=== PATIENT | female | born 1995 | race Caucasian/White ===

== ENCOUNTER 2017-04-25 10:24 | Emergency (ER) | payer OTHER ==
[~2017-04-25] VITALS: Ht 175.3 cm; Wt 83.1 kg
[2017-04-25 10:38] VITALS: TEMP 36.9; Ht 175.3 cm; Wt 83.1 kg
[2017-04-25] MEDS ORDERED: IBUP-1459 PO (11:06)
[2017-04-25] MEDS ORDERED: KETOROLAC TROMETHAMINE 30 MG/ML VIAL IV STA (11:15)
--- NOTE | 2017-04-25 11:15 | EMERGENCY ROOM VISIT NOTE ---
History Report prepared by Fransisca: Edwin Montalvo Under the Supervision of: Dr. Stella Perez M.D. First contact with patient: 10:57 Chief Complaint: PELVIC PAIN Stated Complaint: SHARPT CONSTANT GROIN PAIN History of Present Illness The patient is a 21 year old female who presents to the Emergency Room with complaints of worsening bilateral pelvic pain that started a week ago. She says that she has not had a period since December, but she has been on NUVA rings. The patient states that she stopped the control 2 days ago to get her period. She notes that she a week ago, she started having the lower abdominal pain, but yesterday morning, the pain worsened and is now a sharp constant pain. She adds that the pain wraps around to both sides of her back. The patient states the the pain is worst on the right side of her pelvis. She says that pain has been making her a bit nauseous. The patient says that she last took a test a month ago, which was negative. She denies any fevers, vomiting, vaginal bleeding, or pain with urination. She notes no history or kidney stone history. Source of History: patient Onset: A week ago Position: pelvis (bilateral) Quality: sharp, other (pain) Timing: constant, worsening Associated Symptoms: + nausea, + back pain, No fevers, No vomiting, No urinary symptoms Note: Denies vaginal bleeding. Review of Systems See HPI for pertinent positives & negatives. A total of 10 systems reviewed and were otherwise negative. Past Medical & Surgical Medical Problems: (1) No chronic diseases present Family History Cancer Social History Smoking Status: Never Smoker Smokeless Tobacco Use: No Marital Status: in relationship Housing Status: lives with significant other Occupation Status: student Current/Historical Medications Scheduled PRN Ibuprofen (Motrin), 400-800 MG PO Q2D PRN for Pain Allergies Coded Allergies: No Known Allergies (Unverified , 04/25/17) Physical Exam Vital Signs Date Time Temp Pulse Resp B/P (MAP) Pulse Ox O2 Delivery O2 Flow Rate FiO2 04/25/17 13:58 76 18 120/66 100 04/25/17 12:20 76 18 119/55 100 Room Air 04/25/17 12:16 70 04/25/17 10:38 36.9 94 20 123/78 97 Room Air Physical Exam Vital signs reviewed. General: Well-appearing 21 year old female, in no significant distress. HEENT: No scleral icterus, PERRLA, neck supple. Atraumatic. Cardiovascular: Regular rate and rhythm, no extra sounds. Pulmonary: Clear to auscultation bilaterally, normal work of breathing. Abdomen: Soft, adnexal pain bilaterally nondistended, positive bowel sounds. Musculoskeletal: Mild right CVA tenderness, no peripheral edema. Neurologic: Patient awake alert and oriented x 3 Skin: Warm, dry, no rash Medical Decision & Procedures ER Provider Diagnostic Interpretation: US results as stated below per my review and radiologist interpretation: ULTRASOUND OF THE PELVIS CLINICAL HISTORY: Adnexal pain. COMPARISON STUDY: No priors. TECHNIQUE: Real-time, grayscale, and color flow sonography of the pelvis is performed both transabdominally and endovaginally. Images are reviewed in the transverse and longitudinal planes. FINDINGS: Uterus: The uterus is normal in size and echotexture, measuring 6.5 x 3.9 x 4.6 cm. Nabothian cysts are identified in the cervix. Endometrium: The endometrium is mildly thickened, measuring up to 1.3 cm. No abnormal flow is seen on color imaging. Ovaries: The ovaries are normal in size and morphology. The right ovary measures 2.8 x 2.0 x 1.9 cm and the left ovary measures 3.6 x 1.8 x 2.4 cm. Bilateral follicles are noted. Normal Doppler waveforms are shown within both ovaries. Pelvis: There is no free fluid in the cul-de-sac. No concerning adnexal lesion is seen. IMPRESSION: Unremarkable sonographic assessment of the pelvis. Electronically signed by: Nilo Lee M.D. 04/25/2017 1:29 PM Dictated Date/Time: 04/25/2017 1:28 PM ULTRASOUND OF THE PELVIS CLINICAL HISTORY: Adnexal pain. COMPARISON STUDY: No priors. TECHNIQUE: Real-time, grayscale, and color flow sonography of the pelvis is performed both transabdominally and endovaginally. Images are reviewed in the transverse and longitudinal planes. FINDINGS: Uterus: The uterus is normal in size and echotexture, measuring 6.5 x 3.9 x 4.6 cm. Nabothian cysts are identified in the cervix. Endometrium: The endometrium is mildly thickened, measuring up to 1.3 cm. No abnormal flow is seen on color imaging. Ovaries: The ovaries are normal in size and morphology. The right ovary measures 2.8 x 2.0 x 1.9 cm and the left ovary measures 3.6 x 1.8 x 2.4 cm. Bilateral follicles are noted. Normal Doppler waveforms are shown within both ovaries. Pelvis: There is no free fluid in the cul-de-sac. No concerning adnexal lesion is seen. IMPRESSION: Unremarkable sonographic assessment of the pelvis. Electronically signed by: Nilo Lee M.D 04/25/2017 1:29 PM Dictated Date/Time: 04/25/2017 1:28 PM Laboratory Results 04/25/17 11:30 Red Blood Count 4.54, Mean Corpuscular Volume 85.2, Mean Corpuscular Hemoglobin 28.9, Mean Corpuscular Hemoglobin Concent 33.9, Mean Platelet Volume 10.8, Neutrophils (%) (Auto) 63.5, Lymphocytes (%) (Auto) 27.6, Monocytes (%) (Auto) 5.9, Eosinophils (%) (Auto) 2.6, Basophils (%) (Auto) 0.4, Neutrophils # (Auto) 3.48, Lymphocytes # (Auto) 1.51, Monocytes # (Auto) 0.32, Eosinophils # (Auto) 0.14, Basophils # (Auto) 0.02 04/25/17 11:30 Test 04/25/17 11:30 04/25/17 11:50 White Blood Count 5.47 K/uL (4.8-10.8) Red Blood Count 4.54 M/uL (4.2-5.4) Hemoglobin 13.1 g/dL (12.0-16.0) Hematocrit 38.7 % (37-47) Mean Corpuscular Volume 85.2 fL (80-100) Mean Corpuscular Hemoglobin 28.9 pg (25-34) Mean Corpuscular Hemoglobin Concent 33.9 g/dl (32-36) Platelet Count 209 K/uL (130-400) Mean Platelet Volume 10.8 fL (7.4-10.4) Neutrophils (%) (Auto) 63.5 % Lymphocytes (%) (Auto) 27.6 % Monocytes (%) (Auto) 5.9 % Eosinophils (%) (Auto) 2.6 % Basophils (%) (Auto) 0.4 % Neutrophils # (Auto) 3.48 K/uL (1.4-6.5) Lymphocytes # (Auto) 1.51 K/uL (1.2-3.4) Monocytes # (Auto) 0.32 K/uL (0.11-0.59) Eosinophils # (Auto) 0.14 K/uL (0-0.5) Basophils # (Auto) 0.02 K/uL (0-0.2) RDW Standard Deviation 40.7 fL (36.4-46.3) RDW Coefficient of Variation 13.2 % (11.5-14.5) Immature Granulocyte % (Auto) 0.0 % Immature Granulocyte # (Auto) 0.00 K/uL (0.00-0.02) Anion Gap 6.0 mmol/L (3-11) Est Creatinine Clear Calc Drug Dose 114.2 ml/min Estimated GFR () 106.6 Estimated GFR (Non- 92.0 BUN/Creatinine Ratio 13.1 (10-20) Calcium Level 9.0 mg/dl (8.5-10.1) Total Bilirubin 0.9 mg/dl (0.2-1) Direct Bilirubin 0.2 mg/dl (0-0.2) Aspartate Amino Transf (AST/SGOT) 11 U/L (15-37) Alanine Aminotransferase (ALT/SGPT) 20 U/L (12-78) Alkaline Phosphatase 72 U/L (45-117) Total Protein 7.9 gm/dl (6.4-8.2) Albumin 3.9 gm/dl (3.4-5.0) Lipase 124 U/L (73-393) Urine Color YELLOW Urine Appearance CLEAR (CLEAR) Urine pH 8.0 (4.5-7.5) Urine Specific [place] 1.021 (1.000-1.030) Urine Protein NEG (NEG) Urine Glucose (UA) NEG (NEG) Urine Ketones NEG (NEG) Urine Occult Blood NEG (NEG) Urine Nitrite NEG (NEG) Urine Bilirubin NEG (NEG) Urine Urobilinogen NEG (NEG) Urine Leukocyte Esterase SMALL (NEG) Urine WBC (Auto) 1-5 /hpf (0-5) Urine RBC (Auto) 0-4 /hpf (0-4) Urine Hyaline Casts (Auto) 1-5 /lpf (0-5) Urine Epithelial Cells (Auto) >30 /lpf (0-5) Urine Bacteria (Auto) NEG (NEG) Urine Test NEG (NEG) Laboratory results per my review. Medications Administered Medications (Trade) Dose Ordered Sig/Ojel Route Start Time Stop Time Status Last Admin Dose Admin Ketorolac Tromethamine (Toradol Inj) 30 mg NOW STAT IV 04/25/17 11:15 04/25/17 11:19 DC 04/25/17 11:32 30 MG ED Course 1106: Past medical records reviewed. The patient was evaluated in room B7. A complete history and physical examination was performed. 1115: Ordered Toradol Inj 30 mg IV. 1351: Upon reevaluation, the patient appeared to be resting comfortably. I discussed findings with her. She verbalized agreement of the treatment plan. She will be discharged home. Medical Decision Differential diagnosis: Ectopic , ovarian cyst, PID, UTI, kidney stone, appendicitis. This patient was evaluated and appeared to be in no significant distress. IV access was obtained and laboratory work was drawn. Patient was given Toradol 30 mg IV. test is negative, UA is negative. Laboratory work is unrevealing. Ultrasound pelvis reveals no evidence of ovarian abnormality. There is no adnexal mass. The etiology of the patient's amenorrhea is unclear. She'll follow-up with her physician for further management. Patient will return to the ER for worsening of symptoms or any medical concerns. Medication Reconcilliation Current Medication List: was personally reviewed by me Blood Pressure Screening Patient's blood pressure: Normal blood pressure Impression Primary Impression: Suprapubic discomfort Scribe Attestation The scribe's documentation has been prepared under my direction and personally reviewed by me in its entirety. I confirm that the note above accurately reflects all work, treatment, procedures, and medical decision making performed by me. Departure Information Dispostion Home / Self-Care Referrals No Doctor, Assigned (PCP) Garcia Fair D.O. Patient Instructions My [facility] Additional Instructions Diagnosis: Suprapubic discomfort Contact your TILE LAYER in follow-up. Ibuprofen 600 mg every 6 hours as needed for pain with food. Drink plenty of clear fluids. Return to the ER for worsening of symptoms or any medical concerns.
[2017-04-25 11:54] LABS: BASO % 0.4 %; BASO ABS # 0.02 K/uL (0-0.2); EOS % 2.6 %; EOS ABS # 0.14 K/uL (0-0.5); HEMATOCRIT 38.7 % (37-47); HEMOGLOBIN 13.1 g/dL (12.0-16.0); LYMPH % 27.6 %; LYMPH ABS # 1.51 K/uL (1.2-3.4); MEAN CELL VOLUME 85.2 fL (80-100); MEAN CORPUSCULAR HEMOGLOBIN 28.9 pg (25-34); MEAN CORPUSCULAR HGB CONC 33.9 g/dl (32-36); MEAN PLATELET VOLUME 10.8 fL (7.4-10.4); MONO % 5.9 %; MONO ABS # 0.32 K/uL (0.11-0.59); NEUT % 63.5 %; NEUT ABS # 3.48 K/uL (1.4-6.5); PLATELET COUNT 209 K/uL (130-400); RED CELL DISTRIBUTION WIDTH CV 13.2 % (11.5-14.5); RED CELL DISTRIBUTION WIDTH SD 40.7 fL (36.4-46.3); WHITE BLOOD COUNT 5.47 K/uL (4.8-10.8)
[2017-04-25 12:17] LABS: ALBUMIN 3.9 gm/dl (3.4-5.0); CREATININE 0.89 mg/dl (0.60-1.20); POTASSIUM 3.8 mmol/L (3.5-5.1)
[2017-04-25 12:20] LABS: TOTAL PROTEIN 7.9 gm/dl (6.4-8.2)
--- NOTE | 2017-04-25 13:30 | DIAGNOSTIC IMAGING REPORT ---
ULTRASOUND OF THE PELVIS CLINICAL HISTORY: Adnexal pain. COMPARISON STUDY: No priors. TECHNIQUE: Real-time, grayscale, and color flow sonography of the pelvis is performed both transabdominally and endovaginally. Images are reviewed in the transverse and longitudinal planes. FINDINGS: Uterus: The uterus is normal in size and echotexture, measuring 6.5 x 3.9 x 4.6 cm. Nabothian cysts are identified in the cervix. Endometrium: The endometrium is mildly thickened, measuring up to 1.3 cm. No abnormal flow is seen on color imaging. Ovaries: The ovaries are normal in size and morphology. The right ovary measures 2.8 x 2.0 x 1.9 cm and the left ovary measures 3.6 x 1.8 x 2.4 cm. Bilateral follicles are noted. Normal Doppler waveforms are shown within both ovaries. Pelvis: There is no free fluid in the cul-de-sac. No concerning adnexal lesion is seen. IMPRESSION: Unremarkable sonographic assessment of the pelvis. Electronically signed by: Nilo Lee M.D. 04/25/2017 1:29 PM Dictated Date/Time: 04/25/2017 1:28 PM
[2017-04-25 13:58] VITALS: BP 120/66; PULSE 76; O2SAT 100
== END 2017-04-25 13:57 | disposition home or self-care (01) ==
LOC: C.EDB 10:25
DX: R10.2 Pelvic and perineal pain (principal)